=== PATIENT | female | born 1965 | race Caucasian/White ===

== ENCOUNTER → 2020-10-04 | Outpatient (CLI) | payer MEDICARE ==
[2020-10-04 12:21] LABS: BASO % 0.3 % (0.0-2.0); GRAN # 2.1 (1.4-6.5); GRAN % 52.1 % (42.2-75.2); LYMPH # 1.6 (1.2-3.4); LYMPH % 39.8 % (20.0-51.0); MEAN CELL VOLUME 97 fl (80.0-100.0); MEAN CORPUSCULAR HEMOGLOBIN 33 pg (27.0-31.0); MEAN CORPUSCULAR HGB CONC 34 g/dl (33.0-37.0); MEAN PLATELET VOLUME 11.4 fl (7.4-10.4); MONO # 0.3 (0.1-0.6); MONO % 7.3 % (1.7-9.3); PLATELET COUNT 152 K/mm3 (130-400); RED BLOOD COUNT 3.69 M/mm3 (4.10-5.30); REDCELL DISTRIBUTION WIDTH-CV 13.7 % (11.5-14.5)
[2020-10-04 12:26] LABS: ALBUMIN 3.8 gm/dL (3.5-5.0); BILIRUBIN,TOTAL 2.1 mg/dL (0.0-1.0); CALCIUM 8.9 mg/dL (8.4-10.2); CHOLESTEROL RISK RATIO 3.1; CREATININE, serum 0.75 (0.52-1.25); POTASSIUM 3.7 mmol/L (3.4-5.0); TOTAL PROTEIN 6.2 gm/dL (6.4-8.2)
[2020-10-04 12:31] LABS: HEMATOCRIT 35.6 % (37.0-47.0)
[2020-10-04 12:56] LABS: THYROID STIMULATING HORMONE 1.38 uIU/mL (0.465-4.680)
== END ==
LOC: ZLAB.STJ 11:03
PROVIDERS: Family Medicine
DX: D64.9 Anemia, unspecified (principal); E78.5 Hyperlipidemia, unspecified; E11.9 Type 2 diabetes mellitus without complications; E03.9 Hypothyroidism, unspecified; E55.0 Rickets, active; I42.1 Obstructive hypertrophic cardiomyopathy

== ENCOUNTER → 2020-10-18 | Outpatient (CLI) | payer MEDICARE ==
[2020-10-18 11:47] LABS: CALCIUM 8.9 mg/dL (8.4-10.2); CREATININE, serum 0.66 (0.52-1.25); POTASSIUM 3.6 mmol/L (3.4-5.0)
== END ==
LOC: ZLAB.STJ 10:08
DX: I42.1 Obstructive hypertrophic cardiomyopathy (principal); I10 Essential (primary) hypertension

== ENCOUNTER → 2020-10-28 | Outpatient (REF) | payer MEDICARE | LOC: ZLAB.STJ 18:40 | DX: I42.1 Obstructive hypertrophic cardiomyopathy (principal) ==

== ENCOUNTER → 2020-11-07 | Outpatient (CLI) | payer MEDICARE ==
[2020-11-07 16:21] LABS: BASO % 0.1 % (0.0-2.0); GRAN # 3.9 (1.4-6.5); GRAN % 56.5 % (42.2-75.2); HEMOGLOBIN 11.9 g/dl (12.5-16.0); LYMPH # 2.4 (1.2-3.4); MEAN CELL VOLUME 97 fl (80.0-100.0); MEAN CORPUSCULAR HEMOGLOBIN 32 pg (27.0-31.0); MEAN CORPUSCULAR HGB CONC 33 g/dl (33.0-37.0); MEAN PLATELET VOLUME 10.8 fl (7.4-10.4); MONO # 0.6 (0.1-0.6); PLATELET COUNT 202 K/mm3 (130-400); RED BLOOD COUNT 3.68 M/mm3 (4.10-5.30); REDCELL DISTRIBUTION WIDTH-CV 13.6 % (11.5-14.5)
[2020-11-07 16:34] LABS: HEMATOCRIT 35.7 % (37.0-47.0)
== END ==
LOC: ZCOL.LAB 15:14
DX: F25.9 Schizoaffective disorder, unspecified (principal)

== ENCOUNTER → 2020-12-05 | Outpatient (CLI) | payer MEDICARE ==
[~2020-12-05] MED LIST: ABILIFY 15MG TA15 MG PO; ASPIRIN 81M81 MG/TA2 PO; ATIVAN 1MG T1 MG/TAB PO; ATIVAN2 MG PO; CLARITIN 1010 MG/TAB PO; CLEOCIN HCL300 MG PO; CLOZAPINE50 MG PO; COLESTID 1GM1 G PO; CRESTOR 10MG10 MG PO; EPA FISH OIL1 SGL PO; FARXIGA10 PO; GAS RELIEF125 MG PO; GLUCOPHAGE500 MG/TAB PO; LAC-HYDRIN121 TP; LANTUS SOLOS100 U/ML SQ; LASIX 40MG TABL40 MG PO; LOPRESSOR 225 MG/TAB PO; MOBIC15 MG PO; MOTRIN 600600 MG/TAB PO; MYSOLINE 5050 MG/TAB PO; NAPROSYN500 MG PO; NOVOLOG 100U100 U/M1 SQ; NYSTATIN POWDER30 GM TOP; PROZAC40 MG PO; RANEXA 500MG T500 MG PO; REMERON30 MG PO; SINGULAIR 110 MG/TAB PO; ULTRAM 50MG TAB50 MG PO; VITAMIN B11000 MCG/M IM; VITAMIND3 5000 PO; VOLTAREN GEL 1%1 TU TP
[2020-12-05 13:54] LABS: BASO % 0.2 % (0.0-2.0); GRAN # 2.8 (1.4-6.5); LYMPH % 38.1 % (20.0-51.0); MEAN CELL VOLUME 97 fl (80.0-100.0); MEAN CORPUSCULAR HEMOGLOBIN 32 pg (27.0-31.0); MEAN CORPUSCULAR HGB CONC 33 g/dl (33.0-37.0); MEAN PLATELET VOLUME 10.8 fl (7.4-10.4); MONO # 0.3 (0.1-0.6); MONO % 6.1 % (1.7-9.3); PLATELET COUNT 185 K/mm3 (130-400); RED BLOOD COUNT 3.74 M/mm3 (4.10-5.30); REDCELL DISTRIBUTION WIDTH-CV 14.6 % (11.5-14.5)
[2020-12-05 13:55] LABS: HEMATOCRIT 36.1 % (37.0-47.0)
== END ==
LOC: ZLAB.STJ 13:32
DX: I48.19 Other persistent atrial fibrillation (principal)

== ENCOUNTER → 2020-12-13 | Outpatient (CLI) | payer MEDICARE ==
[2020-12-13 12:09] LABS: CALCIUM 8.7 mg/dL (8.4-10.2); CREATININE, serum 0.76 (0.52-1.25); POTASSIUM 3.3 mmol/L (3.4-5.0)
== END ==
LOC: ZLAB.STJ 11:30
PROVIDERS: Family Medicine
DX: I42.1 Obstructive hypertrophic cardiomyopathy (principal); E11.9 Type 2 diabetes mellitus without complications; I10 Essential (primary) hypertension

== ENCOUNTER → 2021-01-06 | Outpatient (CLI) | payer MEDICARE ==
[2021-01-06 10:27] LABS: BASO % 0.2 % (0.0-2.0); GRAN # 2.4 (1.4-6.5); GRAN % 51.9 % (42.2-75.2); HEMOGLOBIN 11.6 g/dl (12.5-16.0); LYMPH # 1.8 (1.2-3.4); LYMPH % 39.2 % (20.0-51.0); MEAN CELL VOLUME 97 fl (80.0-100.0); MEAN CORPUSCULAR HEMOGLOBIN 32 pg (27.0-31.0); MEAN CORPUSCULAR HGB CONC 33 g/dl (33.0-37.0); MEAN PLATELET VOLUME 10.4 fl (7.4-10.4); MONO # 0.4 (0.1-0.6); MONO % 8.1 % (1.7-9.3); PLATELET COUNT 197 K/mm3 (130-400); RED BLOOD COUNT 3.62 M/mm3 (4.10-5.30); REDCELL DISTRIBUTION WIDTH-CV 14.4 % (11.5-14.5)
[2021-01-06 10:28] LABS: HEMATOCRIT 35.1 % (37.0-47.0)
== END ==
LOC: ZLAB.STJ 10:12
PROVIDERS: Family Medicine
DX: E11.9 Type 2 diabetes mellitus without complications (principal)

== ENCOUNTER → 2021-02-01 | Outpatient (CLI) | payer MEDICARE ==
[2021-02-01 17:42] LABS: COLLECTION METHOD CLEAN CATCH
[2021-02-01 17:52] LABS: PH 5 (5-8); SQUAMOUS EPITHELIAL 0-2 /hpf; URINE APPEARANCE Hazy; URINE BACTERIA Moderate /hpf; URINE BILIRUBIN Negative (NEGATIVE); URINE BLOOD Negative (NEGATIVE); URINE COLOR Yellow; URINE GLUCOSE 3+ (NEGATIVE); URINE KETONE Negative (NEGATIVE); URINE LEUKOCYTE ESTERASE 2+ (NEGATIVE); URINE NITRATE Negative (NEGATIVE); URINE PROTEIN(semi-quant) Negative (NEGATIVE); URINE RBC 0-2 /hpf; URINE UROBILINOGEN Negative (NEGATIVE)
== END ==
LOC: ZLAB.STJ 16:58
PROVIDERS: Family Medicine
DX: N39.0 Urinary tract infection, site not specified (principal)

== ENCOUNTER → 2021-02-06 | Outpatient (REF) ==
[2021-02-06 11:40] LABS: GRAN % 51.3 % (42.2-75.2); HEMOGLOBIN 11.4 g/dl (12.5-16.0); LYMPH # 1.5 (1.2-3.4); LYMPH % 39.5 % (20.0-51.0); MEAN CELL VOLUME 98 fl (80.0-100.0); MEAN CORPUSCULAR HEMOGLOBIN 33 pg (27.0-31.0); MEAN CORPUSCULAR HGB CONC 34 g/dl (33.0-37.0); MEAN PLATELET VOLUME 10.5 fl (7.4-10.4); MONO # 0.3 (0.1-0.6); MONO % 7.9 % (1.7-9.3); PLATELET COUNT 163 K/mm3 (130-400); RED BLOOD COUNT 3.45 M/mm3 (4.10-5.30); REDCELL DISTRIBUTION WIDTH-CV 14.6 % (11.5-14.5)
[2021-02-06 11:43] LABS: HEMATOCRIT 33.8 % (37.0-47.0)
== END ==
LOC: ZLAB.STJ 11:28
DX: Z79.899 Other long term (current) drug therapy (principal)

== ENCOUNTER → 2021-02-28 | Outpatient (CLI) | payer MEDICARE ==
[2021-02-28 12:42] LABS: COLLECTION METHOD CLEAN CATCH
[2021-02-28 13:22] LABS: MUCOUS Present /lpf; PH 5 (5-8); SQUAMOUS EPITHELIAL 0-2 /hpf; URINE APPEARANCE Cloudy; URINE BACTERIA Occasional /hpf; URINE BILIRUBIN Negative (NEGATIVE); URINE BLOOD 1+ (NEGATIVE); URINE COLOR Yellow; URINE GLUCOSE 3+ (NEGATIVE); URINE KETONE Negative (NEGATIVE); URINE LEUKOCYTE ESTERASE 3+ (NEGATIVE); URINE NITRATE Negative (NEGATIVE); URINE PROTEIN(semi-quant) Negative (NEGATIVE); URINE RBC 0-2 /hpf; URINE UROBILINOGEN Negative (NEGATIVE); URINE WBC >50 /hpf
== END ==
LOC: ZLAB.STJ 12:14 → ZCOL.LAB 12:14
PROVIDERS: Family Medicine
DX: E11.9 Type 2 diabetes mellitus without complications (principal)

== ENCOUNTER → 2021-03-04 | Outpatient (CLI) | payer MEDICARE ==
[2021-03-04 10:37] LABS: COLLECTION METHOD CLEAN CATCH
[2021-03-04 10:53] LABS: MUCOUS Present /lpf; PH 5 (5-8); SQUAMOUS EPITHELIAL 0-2 /hpf; URINE APPEARANCE Hazy; URINE BACTERIA Many /hpf; URINE BILIRUBIN Negative (NEGATIVE); URINE BLOOD Negative (NEGATIVE); URINE COLOR Yellow; URINE GLUCOSE 3+ (NEGATIVE); URINE KETONE Negative (NEGATIVE); URINE LEUKOCYTE ESTERASE 2+ (NEGATIVE); URINE NITRATE Negative (NEGATIVE); URINE PROTEIN(semi-quant) Negative (NEGATIVE); URINE RBC 0-2 /hpf; URINE UROBILINOGEN Negative (NEGATIVE)
== END ==
LOC: ZLAB.STJ 05:10
PROVIDERS: Family Medicine
DX: N39.0 Urinary tract infection, site not specified (principal)

== ENCOUNTER → 2021-03-07 | Outpatient (CLI) | payer MEDICARE ==
[2021-03-08 05:11] LABS: GRAN # 2.3 (1.4-6.5); GRAN % 51.5 % (42.2-75.2); HEMOGLOBIN 11.3 g/dl (12.5-16.0); LYMPH # 1.8 (1.2-3.4); LYMPH % 39.7 % (20.0-51.0); MEAN CELL VOLUME 102 fl (80.0-100.0); MEAN CORPUSCULAR HEMOGLOBIN 32 pg (27.0-31.0); MEAN CORPUSCULAR HGB CONC 31 g/dl (33.0-37.0); MEAN PLATELET VOLUME 10.6 fl (7.4-10.4); MONO # 0.4 (0.1-0.6); MONO % 8.1 % (1.7-9.3); PLATELET COUNT 180 K/mm3 (130-400); RED BLOOD COUNT 3.52 M/mm3 (4.10-5.30); REDCELL DISTRIBUTION WIDTH-CV 14.4 % (11.5-14.5)
[2021-03-08 05:17] LABS: CREATININE, serum 0.89 (0.52-1.25); POTASSIUM 3.4 mmol/L (3.4-5.0)
== END ==
LOC: ZCOL.LAB 20:20
PROVIDERS: Family Medicine
DX: I10 Essential (primary) hypertension (principal); Z79.899 Other long term (current) drug therapy

== ENCOUNTER → 2021-04-11 | Outpatient (CLI) | payer MEDICARE ==
[2021-04-11 11:01] LABS: BASO % 0.3 % (0.0-2.0); GRAN # 1.6 (1.4-6.5); GRAN % 47.9 % (42.2-75.2); HEMOGLOBIN 10.9 g/dl (12.5-16.0); LYMPH # 1.5 (1.2-3.4); LYMPH % 44.3 % (20.0-51.0); MEAN CELL VOLUME 99 fl (80.0-100.0); MEAN CORPUSCULAR HEMOGLOBIN 32 pg (27.0-31.0); MEAN CORPUSCULAR HGB CONC 32 g/dl (33.0-37.0); MEAN PLATELET VOLUME 10.6 fl (7.4-10.4); MONO # 0.2 (0.1-0.6); MONO % 6.6 % (1.7-9.3); PLATELET COUNT 158 K/mm3 (130-400); RED BLOOD COUNT 3.41 M/mm3 (4.10-5.30); REDCELL DISTRIBUTION WIDTH-CV 14.3 % (11.5-14.5)
[2021-04-11 11:02] LABS: HEMATOCRIT 33.6 % (37.0-47.0)
== END ==
LOC: ZLAB.STJ 10:34
DX: Z79.899 Other long term (current) drug therapy (principal)

== ENCOUNTER → 2021-05-10 | Outpatient (CLI) | payer MEDICARE ==
[2021-05-10 14:46] LABS: BASO % 0.3 % (0.0-2.0); GRAN % 53.6 % (42.2-75.2); HEMOGLOBIN 11.4 g/dl (12.5-16.0); LYMPH # 1.4 (1.2-3.4); LYMPH % 37.4 % (20.0-51.0); MEAN CELL VOLUME 99 fl (80.0-100.0); MEAN CORPUSCULAR HEMOGLOBIN 33 pg (27.0-31.0); MEAN CORPUSCULAR HGB CONC 33 g/dl (33.0-37.0); MEAN PLATELET VOLUME 10.7 fl (7.4-10.4); MONO # 0.3 (0.1-0.6); MONO % 7.9 % (1.7-9.3); PLATELET COUNT 160 K/mm3 (130-400); RED BLOOD COUNT 3.51 M/mm3 (4.10-5.30); REDCELL DISTRIBUTION WIDTH-CV 14.8 % (11.5-14.5)
[2021-05-10 14:47] LABS: HEMATOCRIT 34.8 % (37.0-47.0)
== END ==
LOC: ZLAB.STJ 11:07
PROVIDERS: Family Medicine
DX: F25.0 Schizoaffective disorder, bipolar type (principal)

== ENCOUNTER → 2021-05-19 | Outpatient (CLI) | payer MEDICARE ==
[2021-05-19 10:35] LABS: COLLECTION METHOD CLEAN CATCH
[2021-05-19 10:42] LABS: PH 5 (5-8); URINE APPEARANCE Clear; URINE BACTERIA Rare /hpf; URINE BILIRUBIN Negative (NEGATIVE); URINE BLOOD Negative (NEGATIVE); URINE COLOR Colorless; URINE GLUCOSE 3+ (NEGATIVE); URINE KETONE Negative (NEGATIVE); URINE LEUKOCYTE ESTERASE Negative (NEGATIVE); URINE NITRATE Negative (NEGATIVE); URINE PROTEIN(semi-quant) Negative (NEGATIVE); URINE RBC 0-2 /hpf; URINE UROBILINOGEN Negative (NEGATIVE)
[2021-05-19 10:48] LABS: SQUAMOUS EPITHELIAL 0-2 /hpf
== END ==
LOC: ZLAB.STJ 10:27
PROVIDERS: Family Medicine
DX: N39.0 Urinary tract infection, site not specified (principal)

== ENCOUNTER → 2021-06-07 | Outpatient (CLI) | payer MEDICARE ==
[2021-06-07 11:39] LABS: BASO % 0.2 % (0.0-2.0); GRAN # 2.9 (1.4-6.5); GRAN % 59.6 % (42.2-75.2); HEMOGLOBIN 11.9 g/dl (12.5-16.0); LYMPH # 1.6 (1.2-3.4); LYMPH % 32.1 % (20.0-51.0); MEAN CELL VOLUME 99 fl (80.0-100.0); MEAN CORPUSCULAR HEMOGLOBIN 33 pg (27.0-31.0); MEAN CORPUSCULAR HGB CONC 33 g/dl (33.0-37.0); MEAN PLATELET VOLUME 10.8 fl (7.4-10.4); MONO # 0.4 (0.1-0.6); MONO % 7.5 % (1.7-9.3); PLATELET COUNT 173 K/mm3 (130-400); RED BLOOD COUNT 3.66 M/mm3 (4.10-5.30); REDCELL DISTRIBUTION WIDTH-CV 14.4 % (11.5-14.5)
[2021-06-07 11:40] LABS: HEMATOCRIT 36.2 % (37.0-47.0)
== END ==
LOC: ZLAB.STJ 11:13
PROVIDERS: Family Medicine
DX: Z79.899 Other long term (current) drug therapy (principal)

== ENCOUNTER → 2021-07-10 | Outpatient (CLI) | payer MEDICARE ==
[2021-07-10 13:06] LABS: BASO % 0.3 % (0.0-2.0); GRAN # 1.9 (1.4-6.5); GRAN % 49.9 % (42.2-75.2); HEMOGLOBIN 11.4 g/dl (12.5-16.0); LYMPH # 1.5 (1.2-3.4); LYMPH % 39.6 % (20.0-51.0); MEAN CELL VOLUME 99 fl (80.0-100.0); MEAN CORPUSCULAR HEMOGLOBIN 33 pg (27.0-31.0); MEAN CORPUSCULAR HGB CONC 33 g/dl (33.0-37.0); MEAN PLATELET VOLUME 10.7 fl (7.4-10.4); MONO # 0.4 (0.1-0.6); MONO % 9.2 % (1.7-9.3); PLATELET COUNT 168 K/mm3 (130-400); RED BLOOD COUNT 3.49 M/mm3 (4.10-5.30); REDCELL DISTRIBUTION WIDTH-CV 14.7 % (11.5-14.5)
[2021-07-10 13:07] LABS: HEMATOCRIT 34.7 % (37.0-47.0)
== END ==
LOC: ZLAB.STJ 10:34
PROVIDERS: Family Medicine
DX: E03.9 Hypothyroidism, unspecified (principal); E11.9 Type 2 diabetes mellitus without complications; Z79.899 Other long term (current) drug therapy

== ENCOUNTER → 2021-08-09 | Outpatient (CLI) | payer MEDICARE ==
[2021-08-09 15:52] LABS: BASO % 0.2 % (0.0-2.0); GRAN # 2.3 K/mm3 (1.4-6.5); GRAN % 57.1 % (42.2-75.2); HEMOGLOBIN 11.8 g/dl (12.5-16.0); LYMPH # 1.4 K/mm3 (1.2-3.4); LYMPH % 34.1 % (20.0-51.0); MEAN CELL VOLUME 99 fl (80.0-100.0); MEAN CORPUSCULAR HEMOGLOBIN 33 pg (27.0-31.0); MEAN CORPUSCULAR HGB CONC 33 g/dl (33.0-37.0); MEAN PLATELET VOLUME 10.4 fl (7.4-10.4); MONO # 0.3 K/mm3 (0.1-0.6); MONO % 8.1 % (1.7-9.3); PLATELET COUNT 178 K/mm3 (130-400); RED BLOOD COUNT 3.63 M/mm3 (4.10-5.30); REDCELL DISTRIBUTION WIDTH-CV 14.4 % (11.5-14.5)
[2021-08-09 15:53] LABS: HEMATOCRIT 35.8 % (37.0-47.0)
== END ==
LOC: ZLAB.STJ 15:10
DX: Z79.899 Other long term (current) drug therapy (principal)

== ENCOUNTER → 2021-08-22 | Outpatient (CLI) | payer MEDICARE, OTHER, MEDICAID | LOC: COL.RAD 08-21 08:15 | DX: S83.281A Other tear of lateral meniscus, current injury, right knee, initial encounter (principal); M17.11 Unilateral primary osteoarthritis, right knee ==

== ENCOUNTER 2021-08-29 08:56 | Outpatient (CLI) | payer MEDICARE ==
[~2021-08-29] VITALS: Ht 183 cm; Wt 172.7 kg
[2021-08-29 10:04] VITALS: BP 142/81; PULSE 85; TEMP 98.7
[2021-08-29] MEDS ORDERED: VITAMIN B11000 MCG/M IM (10:08)
[2021-08-29] MEDS ORDERED: FARXIGA10 PO (10:09)
[2021-08-29] MEDS ORDERED: GLUCOPHAGE500 MG/TAB PO (10:10)
[2021-08-29] MEDS ORDERED: LOPRESSOR 225 MG/TAB PO (10:10)
[2021-08-29] MEDS ORDERED: RANEXA 500MG T500 MG PO (10:11)
[2021-08-29] MEDS ORDERED: SINGULAIR 110 MG/TAB PO (10:11)
[2021-08-29] MEDS ORDERED: CRESTOR 10MG10 MG PO (10:13)
[2021-08-29] MEDS ORDERED: ASPIRIN 81M81 MG/TA2 PO (10:13)
[2021-08-29] MEDS ORDERED: ATIVAN 1MG T1 MG/TAB PO (10:14)
[2021-08-29] MEDS ORDERED: NOVOLOG 100U100 U/M1 SQ ×2 (10:17→10:30)
[2021-08-29] MEDS ORDERED: CLARITIN 1010 MG/TAB PO (10:28)
[2021-08-29] MEDS ORDERED: MOTRIN 600600 MG/TAB PO (10:29)
[2021-08-29] MEDS ORDERED: ATIVAN2 MG PO (10:32)
[2021-08-29] MEDS ORDERED: VITAMIND3 5000 PO (10:35)
[2021-08-29] MEDS ORDERED: COLESTID 1GM1 G PO (10:36)
[2021-08-29] MEDS ORDERED: EPA FISH OIL1 SGL PO (10:36)
[2021-08-29] MEDS ORDERED: ABILIFY 15MG TA15 MG PO (10:46)
[2021-08-29 10:47] VITALS: BP 142/81; PULSE 81
[2021-08-29] MEDS ORDERED: CLOZAPINE50 MG PO (10:47)
[2021-08-29] MEDS ORDERED: MYSOLINE 5050 MG/TAB PO (10:47)
[2021-08-29] MEDS ORDERED: LASIX 40MG TABL40 MG PO (10:48)
[2021-08-29] MEDS ORDERED: NAPROSYN500 MG PO (10:48)
[2021-08-29] MEDS ORDERED: GAS RELIEF125 MG PO (10:49)
[2021-08-29] MEDS ORDERED: ULTRAM 50MG TAB50 MG PO (10:49)
--- NOTE | 2021-08-29 10:49 | NUR ---
SEE MERGE FOR ALL MEDICATION ADMINISTRATION TIMES, INTRA AND POST SEDATION ASSESSMENTS
[2021-08-29] MEDS ORDERED: NYSTATIN POWDER30 GM TOP (10:50)
[2021-08-29] MEDS ORDERED: MOBIC15 MG PO (10:51)
[2021-08-29] MEDS ORDERED: VOLTAREN GEL 1%1 TU TP (10:51)
[2021-08-29] MEDS ORDERED: PROZAC40 MG PO (10:52)
[2021-08-29] MEDS ORDERED: LANTUS SOLOS100 U/ML SQ (10:52)
[2021-08-29] MEDS ORDERED: REMERON30 MG PO (10:53)
[2021-08-29] MEDS ORDERED: LAC-HYDRIN121 TP (10:54)
[2021-08-29] MEDS ORDERED: CLEOCIN HCL300 MG PO (11:08)
[2021-08-29 11:14] VITALS: BP 98/55; PULSE 87
[2021-08-29 11:30] VITALS: BP 94/58; PULSE 84
[2021-08-29 11:45] VITALS: BP 122/77; PULSE 82
[2021-08-29 12:00] VITALS: BP 122/62; PULSE 81
--- NOTE | 2021-08-29 12:12 | NUR ---
Discharge instructions given to pt.Pt verbalizes understanding.INT removed,Catheter tip intact.
== END 2021-08-29 13:18 ==
LOC: COL.CAR 08:56
DX: I42.2 Other hypertrophic cardiomyopathy (principal); E66.01 Morbid (severe) obesity due to excess calories; J44.9 Chronic obstructive pulmonary disease, unspecified; G47.33 Obstructive sleep apnea (adult) (pediatric); Z99.81 Dependence on supplemental oxygen; I10 Essential (primary) hypertension; E78.5 Hyperlipidemia, unspecified; E11.9 Type 2 diabetes mellitus without complications; E03.9 Hypothyroidism, unspecified; Z87.891 Personal history of nicotine dependence
CPT/HCPCS: C1764; J2250; J3010; J3370

== ENCOUNTER → 2021-09-05 | Outpatient (CLI) | payer MEDICARE ==
[2021-09-05 10:40] LABS: BASO % 0.5 % (0.0-2.0); GRAN % 52.9 % (42.2-75.2); HEMOGLOBIN 11.3 g/dl (12.5-16.0); LYMPH # 1.5 K/mm3 (1.2-3.4); LYMPH % 38.3 % (20.0-51.0); MEAN CELL VOLUME 96 fl (80.0-100.0); MEAN CORPUSCULAR HEMOGLOBIN 32 pg (27.0-31.0); MEAN CORPUSCULAR HGB CONC 33 g/dl (33.0-37.0); MEAN PLATELET VOLUME 10.2 fl (7.4-10.4); MONO # 0.3 K/mm3 (0.1-0.6); MONO % 7.3 % (1.7-9.3); PLATELET COUNT 168 K/mm3 (130-400); RED BLOOD COUNT 3.53 M/mm3 (4.10-5.30)
[2021-09-05 10:41] LABS: HEMATOCRIT 33.8 % (37.0-47.0)
== END ==
LOC: ZLAB.STJ 10:30
PROVIDERS: Family Medicine
DX: Z79.899 Other long term (current) drug therapy (principal)

== ENCOUNTER → 2021-09-25 | Outpatient (CLI) | payer MEDICARE ==
[2021-09-25 16:41] LABS: POTASSIUM 4.1 mmol/L (3.5-4.5)
[2021-09-25 17:00] LABS: CREATININE, serum 0.87 mg/dL (0.57-1.11)
== END ==
LOC: ZLAB.STJ 16:16
PROVIDERS: Family Medicine
DX: E11.9 Type 2 diabetes mellitus without complications (principal)

== ENCOUNTER → 2021-10-05 | Outpatient (CLI) | payer MEDICARE ==
[2021-10-05 12:00] LABS: BASO % 0.5 % (0.0-2.0); GRAN # 2.3 K/mm3 (1.4-6.5); GRAN % 58.3 % (42.2-75.2); HEMOGLOBIN 11.6 g/dl (12.5-16.0); LYMPH # 1.3 K/mm3 (1.2-3.4); LYMPH % 33.3 % (20.0-51.0); MEAN CELL VOLUME 100 fl (80.0-100.0); MEAN CORPUSCULAR HEMOGLOBIN 32 pg (27-31); MEAN CORPUSCULAR HGB CONC 32 g/dl (33.0-37.0); MEAN PLATELET VOLUME 10.9 fl (7.4-10.4); MONO # 0.3 K/mm3 (0.1-0.6); MONO % 7.2 % (1.7-9.3); PLATELET COUNT 166 K/mm3 (130-400); RED BLOOD COUNT 3.59 M/mm3 (4.10-5.30); REDCELL DISTRIBUTION WIDTH-CV 15.3 % (11.5-14.5)
[2021-10-05 12:01] LABS: HEMATOCRIT 35.8 % (37.0-47.0)
== END ==
LOC: ZLAB.STJ 11:46
DX: Z86.14 Personal history of Methicillin resistant Staphylococcus aureus infection (principal)

== ENCOUNTER → 2021-10-09 | Outpatient (CLI) | payer MEDICARE | LOC: ZLAB.STJ 11:55 | DX: E11.9 Type 2 diabetes mellitus without complications (principal) ==

== ENCOUNTER → 2021-10-16 | Outpatient (CLI) | payer MEDICARE, MEDICAID ==
[2021-10-16 13:14] LABS: ANION GAP 14 mmol/L (7-16); BLOOD UREA NITROGEN 12 mg/dL (10-20); CALCIUM 8.6 mg/dL (8.4-10.2); CARBON DIOXIDE 28 mmol/L (22-29); CHLORIDE 95 mmol/L (98-107); CREATININE, serum 0.94 mg/dL (0.57-1.11); GLUCOSE 232 mg/dL (70-99); MAGNESIUM 1.8 mg/dL (1.6-2.6); POTASSIUM 3.7 mmol/L (3.5-4.5); SODIUM 137 mmol/L (136-145)
== END ==
LOC: ZLAB.STJ 12:27
PROVIDERS: Internal Medicine
DX: E55.9 Vitamin D deficiency, unspecified (principal); I10 Essential (primary) hypertension; E61.2 Magnesium deficiency; D51.9 Vitamin B12 deficiency anemia, unspecified

== ENCOUNTER → 2021-10-26 | Outpatient (CLI) | payer MEDICARE, MEDICAID ==
[2021-10-26 16:25] LABS: COLLECTION METHOD CLEAN CATCH
[2021-10-26 16:49] LABS: MUCOUS Present (NOT PRESENT); PH 5 (5-8); SQUAMOUS EPITHELIAL 0-2 /hpf (0-10); URINE APPEARANCE Hazy (CLEAR/HAZY); URINE BACTERIA Rare /hpf (NONE SEEN); URINE BILIRUBIN Negative (NEGATIVE); URINE BLOOD 1+ (NEGATIVE); URINE COLOR Yellow (YELLOW); URINE GLUCOSE 3+ (NEGATIVE); URINE KETONE Negative (NEGATIVE); URINE LEUKOCYTE ESTERASE 1+ (NEGATIVE); URINE NITRATE Negative (NEGATIVE); URINE PROTEIN(semi-quant) Negative (NEGATIVE); URINE RBC 0-2 /hpf (0-2); URINE UROBILINOGEN Negative (NEGATIVE)
== END ==
LOC: ZLAB.STJ 16:13
PROVIDERS: Internal Medicine
DX: R30.0 Dysuria (principal)

== ENCOUNTER → 2021-11-02 | Outpatient (CLI) | payer MEDICARE, MEDICAID ==
[2021-11-02 12:53] LABS: BASO % 0.5 % (0.0-2.0); GRAN # 2.1 K/mm3 (1.4-6.5); GRAN % 54.4 % (42.2-75.2); HEMATOCRIT 37.7 % (37.0-47.0); HEMOGLOBIN 12.5 g/dl (12.5-16.0); LYMPH # 1.4 K/mm3 (1.2-3.4); LYMPH % 36.6 % (20.0-51.0); MEAN CELL VOLUME 98 fl (80.0-100.0); MEAN CORPUSCULAR HEMOGLOBIN 32 pg (27-31); MEAN CORPUSCULAR HGB CONC 33 g/dl (33.0-37.0); MEAN PLATELET VOLUME 9.9 fl (7.4-10.4); MONO # 0.3 K/mm3 (0.1-0.6); PLATELET COUNT 171 K/mm3 (130-400); RED BLOOD COUNT 3.86 M/mm3 (4.10-5.30); REDCELL DISTRIBUTION WIDTH-CV 14.6 % (11.5-14.5)
== END ==
LOC: ZLAB.STJ 11:50
DX: F25.0 Schizoaffective disorder, bipolar type (principal)

== ENCOUNTER → 2021-11-13 | Outpatient (CLI) | payer MEDICARE, MEDICAID ==
[2021-11-13 11:58] LABS: THYROID STIMULATING HORMONE 2.633 uIU/mL (0.350-4.940)
== END ==
LOC: ZLAB.STJ 11:15
PROVIDERS: Internal Medicine
DX: E03.9 Hypothyroidism, unspecified (principal); E66.01 Morbid (severe) obesity due to excess calories

== ENCOUNTER → 2021-12-26 | Outpatient (CLI) | payer MEDICARE, MEDICAID ==
[2021-12-26 15:20] LABS: BASO % 0.2 % (0.0-2.0); GRAN # 2.2 K/mm3 (1.4-6.5); GRAN % 53.7 % (42.2-75.2); HEMATOCRIT 37.2 % (37.0-47.0); HEMOGLOBIN 12.5 g/dl (12.5-16.0); LYMPH # 1.6 K/mm3 (1.2-3.4); LYMPH % 39.2 % (20.0-51.0); MEAN CELL VOLUME 97 fl (80.0-100.0); MEAN CORPUSCULAR HEMOGLOBIN 33 pg (27-31); MEAN CORPUSCULAR HGB CONC 34 g/dl (33.0-37.0); MONO # 0.3 K/mm3 (0.1-0.6); MONO % 6.7 % (1.7-9.3); PLATELET COUNT 205 K/mm3 (130-400); RED BLOOD COUNT 3.84 M/mm3 (4.10-5.30); REDCELL DISTRIBUTION WIDTH-CV 14.4 % (11.5-14.5)
== END ==
LOC: ZLAB.STJ 15:01
PROVIDERS: Internal Medicine
DX: E66.01 Morbid (severe) obesity due to excess calories (principal)